=== PATIENT | male | born 1955 | race Caucasian/White ===

== ENCOUNTER 2017-01-10 04:06 | Inpatient (IN) | payer OTHER ==
[~2017-01-10] VITALS: Ht 185.4 cm; Wt 136.6 kg
--- NOTE | ~2017-01-10 | EKG ---
[address] [place] [address] ELECTROCARDIOGRAM REPORT Name: SUKUMAR ROMEO Room #: 454-P ADM IN M.R.#: [id number] Admission: 01/11/17 Attend Phys: Robert Jacobson DO Discharge: Date of : 51 Report #: [id number] THIS REPORT FOR: //name// [facility] ED Test Date: 2017-01-10 Test Time: 04:25:52 Pat Name: SUKUMAR ROMEO Department: Room: 454 Gender: M Quoter: HUA : 1955 Requested By: Mario Pacheco Order Number: [id number] MD: Lisandro Ohara Measurements Intervals [employer] Rate: 75 P: 46 SC: 149 QRS: -20 QRSD: 125 T: 68 QT: 431 QTc: 482 Interpretive Statements Sinus rhythm Nonspecific intraventricular conduction delay Inferior infarct, old Compared to ECG 05/08/2015 13:38:55 No significant change was found Electronically Signed On 01-11-2017 12:57:04 CDT by Lisandro Ohara [email or web address] <ELECTRONICALLY SIGNED> By: Lisandro Ohara MD, [facility] 01/11/17 1257 0425 0425 Lisandro Ohara MD, [facility] /EPI
--- NOTE | ~2017-01-10 | HC ---
[facility] [place] [address] CONSULTATION Name: AGUEDASUKUMAR Ary Room #: 454-P [facility] IN M.R.#: [id number] Admission: 01/11/17 Attend Phys: Robert Jacobson DO Discharge: Date of : 51 Report #: [id number] THIS REPORT FOR: //name// CC: Robert Jacobson WON PERSON DATE OF SERVICE: 01/11/2017 HISTORY OF PRESENT ILLNESS: The patient is a 61-year-old white male, left-handed, admitted with right-sided weakness. He noted difficulty with functional mobility, some slurring of his speech. He was seen by Neurology and underwent an MRI scan, which revealed too small acute/subacute ischemic infarcts, left basal ganglia. He has been diagnosed with two acute small CVAs. He is being seen now in rehabilitation medicine consultation. PAST MEDICAL HISTORY: 1. Includes exogenous obesity. 2. Prior [place] x 2. He has had multiple stents x8. He has had coronary artery bypass grafting x4. 3. GI bleed. 4. Rheumatoid arthritis. 5. CHF. 6. Sleep apnea. 7. Severe left hip pain and apparently has some cysts of his left hip, but apparently is not being considered for surgery. 8. History of atrial fibrillation, atrial flutter with cardioversion. 9. Hypertension. 10. Dyslipidemia. 11. Cardiac ablation 10/27/2016. 12. GERD. 13. He has lithotripsy. MEDICATIONS: Please see the full medication listing. ALLERGIES: ATENOLOL, PENICILLIN, SHELLFISH. FAMILY HISTORY: Noncontributory. HABITS: Former tobacco abuse, 2 packs per day for 20 years. No history of alcohol abuse. SOCIAL HISTORY: Lives with his , mikey, one step, was using a cane to get around. He has chronic back and left hip pain. REVIEW OF SYSTEMS: Did not offer any current complaints of chest pain, shortness of breath or abdominal discomfort. Complains that he is having more [facility] [address] [place] [address] CONSULTATION Name: SUKUMAR ROMEO Ary Room #: 454-P [facility] IN [facility].#: [id number] Admission: 01/11/17 Attend Phys: Robert Jacobson DO Discharge: Date of : 51 Report #: [id number] difficulty with his functional mobility, some speech difficulty and has some problems with coordination. He has the chronic left hip and low back pain. PHYSICAL EXAMINATION: GENERAL: A 61-year-old left-handed, obese white male in no obvious distress. Height 6 feet 1 inch. Weight 302 pounds. Alert, oriented. Facies appeared symmetric. He might have a mild depressed right nasolabial fold. NEUROLOGIC: Some slight slurring of his speech. Functionally, he has functional range of motion and strength of the left upper and left lower extremity. Right upper extremity has some mild decrease with fine finger dexterity and finger to nose. Strength appears to be at least a grade 4+ to 5-/5. Right lower extremity strength appears to be a 4+ to 5-/5. DTRs are 1. He does have the chronic left hip pain. He has a definite significant antalgia with short distance ambulation. ASSESSMENT: A 61-year-old left-handed white male with the following problem list: 1. Acute/subacute left basal ganglia cerebrovascular accidents. 2. Right-sided weakness, which appears to be improving. 3. Some mild slurring of speech, appears to be improving. 4. Premorbid significant left hip and back pain. 5. Coronary artery disease with past history of multiple stents and prior CABG. 6. History of cardiac ablation and cardioversion. 7. Insulin-dependent diabetes mellitus. 8. Hypertension. 9. Gastroesophageal reflux disease. 10. Sleep apnea. 11. Congestive heart failure. PLAN: Therapies are working with him and we are assessing his candidacy for a potential short acute [address] [place] [address] inpatient rehabilitation stay. We will be glad to follow along with you regarding his rehab therapy needs. By: [id number] [id number] Kyle Claros MD /
[~2017-01-10 04:06] MED LIST: ATENOLOL 50MG T50 M1 PO; CIPROFLOXACIN500 M1 PO; DILTIAZEM 24HR180 M1 PO; DILTIAZEM 24HR240 M1 PO; ELIQUIS5 MG PO; FISH OIL + D31 EACH PO; FISH OIL 1,0001 EAC8 PO; FISH OIL 1,001000 M2; FISH OIL 1,001000 M2 PO; FLOMAX0.4 MG PO; GLUCOPHAGE500 MG PO; HYDROCODON-ACE1 EA10 PO; HYDROCODON-ACE1 EAC5 PO; INVOKANA100 MG PO; LANOXIN 0.25M0.25 M1 PO; LANTUS SOL100 UNIT/1 SQ; LASIX 40 MG TAB40 M2 PO; LEVAQUIN 500 M500 M2 PO; LIPITOR40 MG PO; LISINOPRIL10 MG PO; LOW DOSE ASPIRI81 M1 PO; METFORMIN HCL500 M2 PO; METFORMIN HCL500 MG PO; METOPROLOL TARTRATE PO; MIRALAX17 GM PO; MIRALAX255 GM PO; MOBIC7.5 MG PO; NEURONTIN 300300 M1 PO; NEURONTIN 300M300 M2 PO; NORCO 10-325 T1 EACH PO; NORCO 5-325 TA1 EACH PO; PACERONE 200 M200 M1 PO; PAXIL10 MG; PERCOCET 5-3251 EACH PO; POTASSIUM20 PO; PRINIVIL20 MG PO; PROSCAR 5MG TABL5 M1 PO; PROSCAR 5MG TABL5 MG PO; TAMSULOSIN HCL0.4 M1 PO; TAMSULOSIN HCL0.4 MG PO; TOPROL XL25 MG PO; TOPROL XL50 MG PO; ZANTAC 150MG T150 M1 PO; ZOFRAN ODT4 MG PO
[2017-01-10 04:08] VITALS: BP 163/88
[2017-01-10] MEDS ORDERED: ALLOPURINOL 30300 M2 PO (04:29)
[2017-01-10] MEDS ORDERED: ELIQUIS5 MG PO (04:30)
[2017-01-10] MEDS ORDERED: LASIX 40 MG TAB40 M2 PO (04:33)
[2017-01-10 04:34] LABS: HEMATOCRIT 42.8 % (42.0-52.0); MCH 28.1 pg (26.0-34.0); MCHC 32.6 g/dL (28.0-37.0); MCV 86.3 fL (80.0-100.0); PLATELET COUNT 179 thou/uL (150-400); RBC 4.96 mil/uL (4.50-6.00); RDW 15.3 % (10.5-14.5); WBC 7.6 thou/uL (4.0-11.0)
[2017-01-10] MEDS ORDERED: LEVEMIR SUBQ (04:34)
[2017-01-10] MEDS ORDERED: PACERONE 200 M200 M1 PO (04:36)
[2017-01-10 04:42] LABS: ANION GAP 7 mmol/L (7-16); BUN 18 mg/dL (7-18); CALCIUM 9.1 mg/dL (8.5-10.1); CHLORIDE 103 mmol/L (98-107); CO2 30 mmol/L (21-32); GLUCOSE 169 mg/dL (74-106); POTASSIUM 4.1 mmol/L (3.5-5.1); SODIUM 140 mmol/L (136-145)
[2017-01-10 04:42] LABS: POC CA IONIZED 4.6 mg/dL (4.5-5.3); POC HEMOGLOBIN 15.3 g/dL (14.0-18.0)
[2017-01-10 04:45] LABS: MANUAL DIFF YES
[2017-01-10 04:47] LABS: APTT 27.3 Seconds (24.5-32.8)
[2017-01-10 04:51] LABS: ALBUMIN 3.5 g/dL (3.4-5.0); ALKALINE PHOSPHATASE 100 U/L (46-116); MAGNESIUM 1.8 mg/dL (1.8-2.4); SGOT 22 U/L (15-37); SGPT 40 U/L (30-65); TOTAL BILIRUBIN 0.6 mg/dL (<0.1-1.0); TOTAL PROTEIN 7.2 g/dL (6.4-8.2); TROPONIN-I < 0.04 ng/mL (<0.04-0.07)
[2017-01-10 05:36] LABS: URINE BILIRUBIN NEGATIVE (Negative); URINE BLOOD TRACE (Negative); URINE COLOR YELLOW; URINE GLUCOSE-RANDOM* NEGATIVE (Negative); URINE KETONES NEGATIVE (Negative); URINE NITRITE POSITIVE (Negative); URINE PROTEIN (DIPSTICK) TRACE (Negative); URINE SPECIFIC GRAVITY 1.025 (1.003-1.035); URINE UROBILINOGEN 0.2 E.U./dl (0.2-1.0)
[2017-01-10 05:44] LABS: AMP/METHAMP Negative (Negative); BARBITURATES Negative (Negative); BENZODIAZEPINES Negative (Negative); COCAINE Negative (Negative); METHADONE Negative (Negative); OPIATES POSITIVE (Negative); PCP Negative (Negative); THC Negative (Negative)
[2017-01-10 05:45] LABS: ABSOLUTE NEUTROPHILS 4.6 thou/uL (1.4-8.2); ANISOCYTOSIS SLIGHT; MACROCYTES SLIGHT; TOTAL CELL COUNT 100
[2017-01-10 05:47] LABS: SQUAMOUS 4-10 Moderate /LPF (0-3)
[2017-01-10 05:48] LABS: CASTS None Seen /LPF (None Seen); CRYSTALS None Seen /LPF (None Seen); URINE RBC 0-2 Rare /HPF (0-2); URINE WBC 6-15 Few /HPF (0-5)
[2017-01-10 05:49] LABS: BACTERIA 1-9 Few /HPF (None Seen)
[2017-01-10 05:58] VITALS: BP 177/86
[2017-01-10 06:46] LABS: CHOLESTEROL 135 mg/dL (<200); HDL CHOLESTEROL 48 mg/dL (>40); LDL CHOLESTEROL 55 mg/dL (<100); TC:HDL 2.8 Ratio (Not establshd); TRIGLYCERIDE 161 mg/dL (<150); VLDL 32 mg/dL (<40)
[2017-01-10 07:13] LABS: FOLIC ACID 10.7 ng/mL (8.6-58.9)
[2017-01-10 07:16] VITALS: BP 154/76
[2017-01-10 07:37] LABS: VALPROIC ACID (DEPAKENE)* < 3 ug/mL (50-100)
[2017-01-10 12:49] VITALS: BP 158/80
[2017-01-10 20:43] VITALS: BP 161/76
[2017-01-11 00:58] VITALS: BP 157/82
[2017-01-11 04:57] VITALS: BP 141/82
[2017-01-11 08:39] VITALS: BP 113/75
[2017-01-11 17:10] VITALS: BP 114/82
[2017-01-11 19:29] VITALS: BP 149/82
[2017-01-12 03:45] VITALS: BP 145/82
[2017-01-12 08:26] VITALS: BP 194/107
[2017-01-12 12:22] VITALS: BP 105/65
[2017-01-12 13:08] LABS: ALPHA TOCOPHEROL 6.9 mg/L (5.3-17.5)
[2017-01-12 16:02] VITALS: BP 138/74
[2017-01-12 19:23] VITALS: BP 125/56
[2017-01-13 04:08] VITALS: BP 110/60
[2017-01-13 09:45] VITALS: BP 132/67
[2017-01-13] MEDS ORDERED: ASPIR 8181 MG PO (10:36)
[2017-01-13 10:44] VITALS: BP 132/67
[2017-01-13 10:49] VITALS: BP 132/67
== END 2017-01-13 12:23 | disposition home or self-care (01) | DRG 65 ==
LOC: ER 04:06 → EROBS 04:53 → 4W 05:53 → ENTRNSPT 01-13 12:14 → 4W 01-13 12:23
PROVIDERS: Emergency Medicine; Psychiatry & Neurology Neurology
DX: I63.9 Cerebral infarction, unspecified (principal); N39.0 Urinary tract infection, site not specified; I48.92 Unspecified atrial flutter; G81.91 Hemiplegia, unspecified affecting right dominant side; I25.10 Atherosclerotic heart disease of native coronary artery without angina pectoris; M06.9 Rheumatoid arthritis, unspecified; I48.91 Unspecified atrial fibrillation; E78.5 Hyperlipidemia, unspecified; N40.0 Benign prostatic hyperplasia without lower urinary tract symptoms; K21.9 Gastro-esophageal reflux disease without esophagitis; R13.10 Dysphagia, unspecified; I50.9 Heart failure, unspecified; I11.0 Hypertensive heart disease with heart failure; G47.33 Obstructive sleep apnea (adult) (pediatric); E11.42 Type 2 diabetes mellitus with diabetic polyneuropathy; E66.01 Morbid (severe) obesity due to excess calories; R47.81 Slurred speech; M54.9 Dorsalgia, unspecified; M25.552 Pain in left hip; Z79.01 Long term (current) use of anticoagulants; Z79.4 Long term (current) use of insulin; Z79.899 Other long term (current) drug therapy; I25.2 Old myocardial infarction; Z95.5 Presence of coronary angioplasty implant and graft; Z95.1 Presence of aortocoronary bypass graft; Z87.891 Personal history of nicotine dependence; Z68.39 Body mass index [BMI] 39.0-39.9, adult; Z87.442 Personal history of urinary calculi; Z88.8 Allergy status to other drugs, medicaments and biological substances; Z91.012 Allergy to eggs; Z88.0 Allergy status to penicillin; Z91.013 Allergy to seafood

== ENCOUNTER → 2019-06-25 | Outpatient (CLI) | payer OTHER ==
[~2019-06-25] MED LIST changes: +ALLOPURINOL 30300 M2 PO; +ASPIR 8181 MG PO; +LEVEMIR SUBQ
== END ==
LOC: SJCVC 13:37
DX: R94.31 Abnormal electrocardiogram [ECG] [EKG] (principal); I25.10 Atherosclerotic heart disease of native coronary artery without angina pectoris; I25.5 Ischemic cardiomyopathy; E78.5 Hyperlipidemia, unspecified; I65.23 Occlusion and stenosis of bilateral carotid arteries; I10 Essential (primary) hypertension; G47.33 Obstructive sleep apnea (adult) (pediatric); I63.9 Cerebral infarction, unspecified; E11.9 Type 2 diabetes mellitus without complications; E78.00 Pure hypercholesterolemia, unspecified; K21.9 Gastro-esophageal reflux disease without esophagitis; I48.0 Paroxysmal atrial fibrillation; Z79.899 Other long term (current) drug therapy; Z87.891 Personal history of nicotine dependence

== ENCOUNTER → 2019-10-05 | Outpatient (CLI) | payer OTHER | LOC: SJCVCIMAG 07:54 | DX: I65.23 Occlusion and stenosis of bilateral carotid arteries (principal); I35.2 Nonrheumatic aortic (valve) stenosis with insufficiency; I25.5 Ischemic cardiomyopathy; I25.10 Atherosclerotic heart disease of native coronary artery without angina pectoris; Z95.1 Presence of aortocoronary bypass graft; Z87.891 Personal history of nicotine dependence ==

== ENCOUNTER → 2020-07-08 | Outpatient (CLI) | payer OTHER | LOC: SJCVC 10:05 | PROVIDERS: ATTEND Internal Medicine | DX: R94.31 Abnormal electrocardiogram [ECG] [EKG] (principal); I25.10 Atherosclerotic heart disease of native coronary artery without angina pectoris; I25.5 Ischemic cardiomyopathy; E78.5 Hyperlipidemia, unspecified; I65.23 Occlusion and stenosis of bilateral carotid arteries; G47.33 Obstructive sleep apnea (adult) (pediatric); I63.9 Cerebral infarction, unspecified; I11.0 Hypertensive heart disease with heart failure; I50.9 Heart failure, unspecified; K21.9 Gastro-esophageal reflux disease without esophagitis; E78.00 Pure hypercholesterolemia, unspecified; E11.40 Type 2 diabetes mellitus with diabetic neuropathy, unspecified; I48.0 Paroxysmal atrial fibrillation; G40.909 Epilepsy, unspecified, not intractable, without status epilepticus; Z79.899 Other long term (current) drug therapy; Z79.4 Long term (current) use of insulin; Z86.73 Personal history of transient ischemic attack (TIA), and cerebral infarction without residual deficits; Z88.0 Allergy status to penicillin; Z88.8 Allergy status to other drugs, medicaments and biological substances ==

== ENCOUNTER → 2020-12-30 | Outpatient (CLI) | payer OTHER | LOC: HYPER 07:37 | PROVIDERS: ATTEND Specialist | DX: E11.621 Type 2 diabetes mellitus with foot ulcer (principal); I70.235 Atherosclerosis of native arteries of right leg with ulceration of other part of foot; L97.512 Non-pressure chronic ulcer of other part of right foot with fat layer exposed; E11.42 Type 2 diabetes mellitus with diabetic polyneuropathy; L84 Corns and callosities; T25.321A Burn of third degree of right foot, initial encounter; T31.0 Burns involving less than 10% of body surface; I25.10 Atherosclerotic heart disease of native coronary artery without angina pectoris; I42.8 Other cardiomyopathies; I50.9 Heart failure, unspecified; E11.51 Type 2 diabetes mellitus with diabetic peripheral angiopathy without gangrene; M16.12 Unilateral primary osteoarthritis, left hip; E78.5 Hyperlipidemia, unspecified; I48.91 Unspecified atrial fibrillation; M10.9 Gout, unspecified; Z79.4 Long term (current) use of insulin; Z79.01 Long term (current) use of anticoagulants; Z79.899 Other long term (current) drug therapy; Z98.49 Cataract extraction status, unspecified eye; Z90.49 Acquired absence of other specified parts of digestive tract; Z95.1 Presence of aortocoronary bypass graft; Z98.890 Other specified postprocedural states; Z87.891 Personal history of nicotine dependence; X08.8XXA Exposure to other specified smoke, fire and flames, initial encounter; Y93.89 Activity, other specified; Y92.89 Other specified places as the place of occurrence of the external cause; Y99.8 Other external cause status ==

== ENCOUNTER → 2021-01-12 | Outpatient (CLI) | payer OTHER | LOC: SJCVCIMAG 07:25 | PROVIDERS: ATTEND Internal Medicine | DX: I08.2 Rheumatic disorders of both aortic and tricuspid valves (principal); R94.31 Abnormal electrocardiogram [ECG] [EKG]; I25.10 Atherosclerotic heart disease of native coronary artery without angina pectoris; I25.5 Ischemic cardiomyopathy; E78.5 Hyperlipidemia, unspecified; I65.23 Occlusion and stenosis of bilateral carotid arteries; I10 Essential (primary) hypertension; G47.33 Obstructive sleep apnea (adult) (pediatric); I63.9 Cerebral infarction, unspecified; E11.9 Type 2 diabetes mellitus without complications; G40.909 Epilepsy, unspecified, not intractable, without status epilepticus; I70.201 Unspecified atherosclerosis of native arteries of extremities, right leg; M79.605 Pain in left leg; M79.604 Pain in right leg; Z79.899 Other long term (current) drug therapy; Z79.84 Long term (current) use of oral hypoglycemic drugs; Z87.891 Personal history of nicotine dependence; Z88.0 Allergy status to penicillin; Z88.1 Allergy status to other antibiotic agents; Z88.8 Allergy status to other drugs, medicaments and biological substances ==

== ENCOUNTER → 2021-01-13 | Outpatient (CLI) | payer OTHER | LOC: HYPER 07:39 | PROVIDERS: ATTEND Specialist | DX: E11.621 Type 2 diabetes mellitus with foot ulcer (principal); I70.235 Atherosclerosis of native arteries of right leg with ulceration of other part of foot; L97.412 Non-pressure chronic ulcer of right heel and midfoot with fat layer exposed; L97.512 Non-pressure chronic ulcer of other part of right foot with fat layer exposed; L84 Corns and callosities; E11.42 Type 2 diabetes mellitus with diabetic polyneuropathy; T25.321D Burn of third degree of right foot, subsequent encounter; T31.0 Burns involving less than 10% of body surface; I25.10 Atherosclerotic heart disease of native coronary artery without angina pectoris; I42.8 Other cardiomyopathies; I50.9 Heart failure, unspecified; E11.51 Type 2 diabetes mellitus with diabetic peripheral angiopathy without gangrene; E78.5 Hyperlipidemia, unspecified; E66.9 Obesity, unspecified; I25.5 Ischemic cardiomyopathy; I48.91 Unspecified atrial fibrillation; K21.9 Gastro-esophageal reflux disease without esophagitis; M16.12 Unilateral primary osteoarthritis, left hip; M10.9 Gout, unspecified; Z79.4 Long term (current) use of insulin; Z79.01 Long term (current) use of anticoagulants; Z98.49 Cataract extraction status, unspecified eye; Z90.49 Acquired absence of other specified parts of digestive tract; Z95.1 Presence of aortocoronary bypass graft; Z68.35 Body mass index [BMI] 35.0-35.9, adult; Z87.891 Personal history of nicotine dependence; X08.8XXD Exposure to other specified smoke, fire and flames, subsequent encounter ==

== ENCOUNTER → 2021-01-27 | Outpatient (CLI) | payer OTHER | LOC: HYPER 07:36 | PROVIDERS: ATTEND Specialist | DX: E11.621 Type 2 diabetes mellitus with foot ulcer (principal); I70.235 Atherosclerosis of native arteries of right leg with ulceration of other part of foot; L97.512 Non-pressure chronic ulcer of other part of right foot with fat layer exposed; L84 Corns and callosities; E11.42 Type 2 diabetes mellitus with diabetic polyneuropathy; T25.321D Burn of third degree of right foot, subsequent encounter; T31.0 Burns involving less than 10% of body surface; I25.10 Atherosclerotic heart disease of native coronary artery without angina pectoris; I42.8 Other cardiomyopathies; I50.9 Heart failure, unspecified; E11.51 Type 2 diabetes mellitus with diabetic peripheral angiopathy without gangrene; E78.5 Hyperlipidemia, unspecified; E66.9 Obesity, unspecified; I25.5 Ischemic cardiomyopathy; I48.91 Unspecified atrial fibrillation; K21.9 Gastro-esophageal reflux disease without esophagitis; M16.12 Unilateral primary osteoarthritis, left hip; M10.9 Gout, unspecified; Z79.4 Long term (current) use of insulin; Z79.01 Long term (current) use of anticoagulants; Z98.49 Cataract extraction status, unspecified eye; Z90.49 Acquired absence of other specified parts of digestive tract; Z95.1 Presence of aortocoronary bypass graft; Z68.35 Body mass index [BMI] 35.0-35.9, adult; Z87.891 Personal history of nicotine dependence; X08.8XXD Exposure to other specified smoke, fire and flames, subsequent encounter ==

== ENCOUNTER → 2021-02-10 | Outpatient (CLI) | payer OTHER | LOC: HYPER 07:59 | PROVIDERS: ATTEND Specialist | DX: E11.621 Type 2 diabetes mellitus with foot ulcer (principal); I70.235 Atherosclerosis of native arteries of right leg with ulceration of other part of foot; L97.512 Non-pressure chronic ulcer of other part of right foot with fat layer exposed; L97.412 Non-pressure chronic ulcer of right heel and midfoot with fat layer exposed; L84 Corns and callosities; E11.42 Type 2 diabetes mellitus with diabetic polyneuropathy; T25.321D Burn of third degree of right foot, subsequent encounter; T31.0 Burns involving less than 10% of body surface; I25.10 Atherosclerotic heart disease of native coronary artery without angina pectoris; I42.8 Other cardiomyopathies; I50.9 Heart failure, unspecified; E11.51 Type 2 diabetes mellitus with diabetic peripheral angiopathy without gangrene; E78.5 Hyperlipidemia, unspecified; E66.9 Obesity, unspecified; I25.5 Ischemic cardiomyopathy; I48.91 Unspecified atrial fibrillation; K21.9 Gastro-esophageal reflux disease without esophagitis; M16.12 Unilateral primary osteoarthritis, left hip; M10.9 Gout, unspecified; Z79.4 Long term (current) use of insulin; Z79.01 Long term (current) use of anticoagulants; Z98.49 Cataract extraction status, unspecified eye; Z90.49 Acquired absence of other specified parts of digestive tract; Z95.1 Presence of aortocoronary bypass graft; Z68.35 Body mass index [BMI] 35.0-35.9, adult; Z87.891 Personal history of nicotine dependence; X08.8XXD Exposure to other specified smoke, fire and flames, subsequent encounter ==

== ENCOUNTER → 2021-02-17 | Outpatient (CLI) | payer OTHER | LOC: HYPER 07:33 | PROVIDERS: ATTEND Specialist | DX: E11.621 Type 2 diabetes mellitus with foot ulcer (principal); I70.235 Atherosclerosis of native arteries of right leg with ulceration of other part of foot; L97.512 Non-pressure chronic ulcer of other part of right foot with fat layer exposed; L97.412 Non-pressure chronic ulcer of right heel and midfoot with fat layer exposed; L84 Corns and callosities; E11.42 Type 2 diabetes mellitus with diabetic polyneuropathy; T25.321D Burn of third degree of right foot, subsequent encounter; T31.0 Burns involving less than 10% of body surface; I25.10 Atherosclerotic heart disease of native coronary artery without angina pectoris; I42.8 Other cardiomyopathies; I50.9 Heart failure, unspecified; E11.51 Type 2 diabetes mellitus with diabetic peripheral angiopathy without gangrene; E78.5 Hyperlipidemia, unspecified; E66.9 Obesity, unspecified; I25.5 Ischemic cardiomyopathy; I48.91 Unspecified atrial fibrillation; K21.9 Gastro-esophageal reflux disease without esophagitis; M16.12 Unilateral primary osteoarthritis, left hip; M10.9 Gout, unspecified; Z79.4 Long term (current) use of insulin; Z79.01 Long term (current) use of anticoagulants; Z98.49 Cataract extraction status, unspecified eye; Z90.49 Acquired absence of other specified parts of digestive tract; Z95.1 Presence of aortocoronary bypass graft; Z68.35 Body mass index [BMI] 35.0-35.9, adult; Z87.891 Personal history of nicotine dependence; X08.8XXD Exposure to other specified smoke, fire and flames, subsequent encounter ==

== ENCOUNTER → 2021-03-03 | Outpatient (CLI) | payer OTHER | LOC: HYPER 07:31 | PROVIDERS: ATTEND Specialist | DX: E11.621 Type 2 diabetes mellitus with foot ulcer (principal); I70.235 Atherosclerosis of native arteries of right leg with ulceration of other part of foot; L97.512 Non-pressure chronic ulcer of other part of right foot with fat layer exposed; L97.412 Non-pressure chronic ulcer of right heel and midfoot with fat layer exposed; L84 Corns and callosities; E11.42 Type 2 diabetes mellitus with diabetic polyneuropathy; T25.321D Burn of third degree of right foot, subsequent encounter; T31.0 Burns involving less than 10% of body surface; I25.10 Atherosclerotic heart disease of native coronary artery without angina pectoris; I42.8 Other cardiomyopathies; I50.9 Heart failure, unspecified; E11.51 Type 2 diabetes mellitus with diabetic peripheral angiopathy without gangrene; E78.5 Hyperlipidemia, unspecified; E66.9 Obesity, unspecified; I25.5 Ischemic cardiomyopathy; I48.91 Unspecified atrial fibrillation; K21.9 Gastro-esophageal reflux disease without esophagitis; M16.12 Unilateral primary osteoarthritis, left hip; M10.9 Gout, unspecified; Z79.4 Long term (current) use of insulin; Z79.01 Long term (current) use of anticoagulants; Z98.49 Cataract extraction status, unspecified eye; Z90.49 Acquired absence of other specified parts of digestive tract; Z95.1 Presence of aortocoronary bypass graft; Z68.35 Body mass index [BMI] 35.0-35.9, adult; Z87.891 Personal history of nicotine dependence; X08.8XXD Exposure to other specified smoke, fire and flames, subsequent encounter ==

== ENCOUNTER → 2021-03-10 | Outpatient (CLI) | payer OTHER | LOC: HYPER 08:23 | PROVIDERS: ATTEND Specialist | DX: T25.321D Burn of third degree of right foot, subsequent encounter (principal); T31.0 Burns involving less than 10% of body surface; E11.621 Type 2 diabetes mellitus with foot ulcer; I70.234 Atherosclerosis of native arteries of right leg with ulceration of heel and midfoot; L97.412 Non-pressure chronic ulcer of right heel and midfoot with fat layer exposed; I70.235 Atherosclerosis of native arteries of right leg with ulceration of other part of foot; L97.511 Non-pressure chronic ulcer of other part of right foot limited to breakdown of skin; E11.40 Type 2 diabetes mellitus with diabetic neuropathy, unspecified; E11.51 Type 2 diabetes mellitus with diabetic peripheral angiopathy without gangrene; L84 Corns and callosities; I25.10 Atherosclerotic heart disease of native coronary artery without angina pectoris; I42.8 Other cardiomyopathies; I50.9 Heart failure, unspecified; M10.9 Gout, unspecified; M16.12 Unilateral primary osteoarthritis, left hip; E78.5 Hyperlipidemia, unspecified; I48.91 Unspecified atrial fibrillation; Z90.49 Acquired absence of other specified parts of digestive tract; Z95.1 Presence of aortocoronary bypass graft; Z98.890 Other specified postprocedural states; Z87.891 Personal history of nicotine dependence; Z79.4 Long term (current) use of insulin; Z79.01 Long term (current) use of anticoagulants; Z79.899 Other long term (current) drug therapy; X08.8XXD Exposure to other specified smoke, fire and flames, subsequent encounter ==

== ENCOUNTER → 2021-03-17 | Outpatient (CLI) | payer OTHER | LOC: HYPER 08:44 | PROVIDERS: ATTEND Specialist | DX: T25.321D Burn of third degree of right foot, subsequent encounter (principal); T31.0 Burns involving less than 10% of body surface; E11.621 Type 2 diabetes mellitus with foot ulcer; I70.234 Atherosclerosis of native arteries of right leg with ulceration of heel and midfoot; L97.412 Non-pressure chronic ulcer of right heel and midfoot with fat layer exposed; I70.235 Atherosclerosis of native arteries of right leg with ulceration of other part of foot; L97.511 Non-pressure chronic ulcer of other part of right foot limited to breakdown of skin; E11.40 Type 2 diabetes mellitus with diabetic neuropathy, unspecified; E11.51 Type 2 diabetes mellitus with diabetic peripheral angiopathy without gangrene; L84 Corns and callosities; I25.10 Atherosclerotic heart disease of native coronary artery without angina pectoris; I42.8 Other cardiomyopathies; I50.9 Heart failure, unspecified; M10.9 Gout, unspecified; M16.12 Unilateral primary osteoarthritis, left hip; E78.5 Hyperlipidemia, unspecified; I48.91 Unspecified atrial fibrillation; Z90.49 Acquired absence of other specified parts of digestive tract; Z95.1 Presence of aortocoronary bypass graft; Z87.891 Personal history of nicotine dependence; Z79.4 Long term (current) use of insulin; Z79.01 Long term (current) use of anticoagulants; X08.8XXD Exposure to other specified smoke, fire and flames, subsequent encounter ==

== ENCOUNTER → 2021-04-07 | Outpatient (CLI) | payer OTHER | LOC: HYPER 08:09 | PROVIDERS: ATTEND Specialist | DX: E11.621 Type 2 diabetes mellitus with foot ulcer (principal); I70.234 Atherosclerosis of native arteries of right leg with ulceration of heel and midfoot; L97.412 Non-pressure chronic ulcer of right heel and midfoot with fat layer exposed; I70.235 Atherosclerosis of native arteries of right leg with ulceration of other part of foot; L97.511 Non-pressure chronic ulcer of other part of right foot limited to breakdown of skin; T25.321D Burn of third degree of right foot, subsequent encounter; T31.0 Burns involving less than 10% of body surface; E11.40 Type 2 diabetes mellitus with diabetic neuropathy, unspecified; L84 Corns and callosities; I25.10 Atherosclerotic heart disease of native coronary artery without angina pectoris; I42.8 Other cardiomyopathies; I50.9 Heart failure, unspecified; X08.8XXD Exposure to other specified smoke, fire and flames, subsequent encounter ==

== ENCOUNTER → 2021-04-14 | Outpatient (CLI) | payer OTHER | LOC: HYPER 07:50 | PROVIDERS: ATTEND Specialist | DX: E11.621 Type 2 diabetes mellitus with foot ulcer (principal); I70.234 Atherosclerosis of native arteries of right leg with ulceration of heel and midfoot; L97.412 Non-pressure chronic ulcer of right heel and midfoot with fat layer exposed; I70.235 Atherosclerosis of native arteries of right leg with ulceration of other part of foot; L97.511 Non-pressure chronic ulcer of other part of right foot limited to breakdown of skin; T25.321D Burn of third degree of right foot, subsequent encounter; T31.0 Burns involving less than 10% of body surface; E11.40 Type 2 diabetes mellitus with diabetic neuropathy, unspecified; L84 Corns and callosities; I25.10 Atherosclerotic heart disease of native coronary artery without angina pectoris; I42.8 Other cardiomyopathies; I50.9 Heart failure, unspecified; X08.8XXD Exposure to other specified smoke, fire and flames, subsequent encounter ==